=== PATIENT | female | born 1965 | race Caucasian/White ===

== ENCOUNTER 2019-07-24 20:12 | Emergency (ER) | payer OTHER ==
[2019-07-24] MEDS ORDERED: Diphtheria,Pertussis(Acell),Tetanus Vaccine 0.5 ML SDV IM ONE (21:27)
--- NOTE | 2019-07-24 21:31 | EDM.PDOC ---
ED HPI GENERAL MEDICAL PROBLEM - General Chief Complaint: Bite:Animal, Insect Stated Complaint: CAT BITE Time Seen by Provider: 07/24/19 21:11 Source of Information: Reports: Patient, Family, RN Notes Reviewed History Limitations: Reports: No Limitations - History of Present Illness INITIAL COMMENTS - FREE TEXT/NARRATIVE: 53-year-old female presents emergency department today with a cat bite and scratch to her right wrist and hand this was a house cat with all the shots up- to-date she does have pain and swelling around the bite yeager right wrist Pain Score (Numeric/FACES): 9 - Related Data Allergies Allergy/AdvReac Type Severity Reaction Status Date / Time No Known Allergies Allergy Verified 07/24/19 20:46 Home Meds: Home Meds Ibuprofen 400 mg PO ASDIRECTED PRN 07/24/19 [History] Loratadine [Alavert] 10 mg PO DAILY 07/24/19 [History] MV,Ca,Min/Iron Fum/FA/Vit K [Essential Woman Tablet] 1 each PO DAILY 07/24/19 [ History] Past Medical History HEENT History: Reports: Impaired Vision, Other (See Below) Other HEENT History: reading glasses 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: Dermatologic History: Reports: Other (See Below) Other Dermatologic History: very dry skin - Infectious Disease History Infectious Disease History: Reports: Chicken Pox - Past Surgical History Cardiovascular Surgical History: Reports: Other (See Below) Other Cardiovascular Surgeries/Procedures: Patent ductus surgery Social & Family History - Tobacco Use Smoking Status *Q: Never Smoker - Caffeine Use Caffeine Use: Reports: Coffee, Soda - Recreational Drug Use Recreational Drug Use: No ED ROS GENERAL - Review of Systems Review Of Systems: See Below Constitutional: Denies: Fever Skin: Reports: Pallor, Erythema, Wound Neurological: Reports: No Symptoms ED EXAM, ANIMAL BITE - Physical Exam Exam: See Below Text/Narrative:: Examination of the right hand reveal puncture works on the dorsal surface of the hand there are some scratch yeager on the wrist there is a mild amount of edema over the right wrist there is warmth there is tenderness to the touch and limited range of motion secondary to pain Exam Limited By: No Limitations General Appearance: Alert, WD/WN, No Apparent Distress Course - Vital Signs Last Recorded V/S: Last Vital Signs Temp 99.1 F 07/24/19 20:48 Pulse 93 07/24/19 20:48 Resp 16 07/24/19 20:48 BP 134/87 07/24/19 20:48 Pulse Ox 97 07/24/19 20:48 - Orders/Labs/Meds Orders: Active Orders 24 hr Category Date Time Status Vaccines to be Administered [RC] PER UNIT ROUTINE Care 07/24/19 21:27 Ordered Diphth,Pertuss(Acell),Tet Vac [Adacel] Med 07/24/19 21:27 Once 0.5 ml IM .ONCE ONE Departure - Departure Time of Disposition: 21:30 Disposition: Home, Self-Care 01 Condition: Fair Clinical Impression: Cat bite of hand Qualifiers: Encounter type: initial encounter Laterality: right Qualified Code(s): S61.451A - Open bite of right hand, initial encounter; W55.01XA - Bitten by cat , initial encounter - Discharge Information Referrals: PCP,None [Primary Care Provider] - Additional Instructions: Take full course of antibiotics, follow-up primary care upon return home for reevaluation if no improvement, call or return to the emergency department worsening of symptoms - My Orders Last 24 Hours: My Active Orders 07/24/19 21:27 Vaccines to be Administered [RC] PER UNIT ROUTINE Diphth,Pertuss(Acell),Tet Vac [Adacel] 0.5 ml IM .ONCE ONE - Assessment/Plan Last 24 Hours: My Active Orders 07/24/19 21:27 Vaccines to be Administered [RC] PER UNIT ROUTINE Diphth,Pertuss(Acell),Tet Vac [Adacel] 0.5 ml IM .ONCE ONE Plan: Assessment Acuity = acute Site and laterality = cat bite right hand Etiology = concern for bacterial cause Manifestations = pain, edema Location of injury = Home Lab values = none Plan Tetanus was updated today started on antibiotics of Augmentin 875 by mouth twice a day 10 days follow-up primary care upon return home This note was dictated using [employer] voice recognition software please call with any questions on syntax or grammar.
== END 2019-07-24 21:38 | disposition home or self-care (01) ==
LOC: JP.ED 20:12
DX: S61.451A Open bite of right hand, initial encounter (principal); S60.811A Abrasion of right wrist, initial encounter; Z23 Encounter for immunization; Z79.899 Other long term (current) drug therapy; W55.01XA Bitten by cat, initial encounter
CPT/HCPCS: 90471; 90715; 99283-25